=== PATIENT | female | born 1985 | race Caucasian/White ===

== ENCOUNTER 2020-02-24 09:15 | Inpatient (IN) | payer MEDICAID ==
[2020-02-24] MEDS ORDERED: LIDOCAINE (2%) 20 MG/1 ML VIAL 20 ML MDV INFILTRATI SCH (09:30)
--- NOTE | 2020-02-24 09:55 | History and Physical Report ---
History of Present Illness Date of examination: 02/24/20 Chief complaint: abd pain "I just don't feel right" History of present illness: presents to L&D with c/o abd pain & vomiting. u/s confirms no cardiac activity, cephalic presentation Pt reports hx x1, no complication, healthy 9 y/o no high risk factors during care with JOSE D Franco, appointment scheduled today. Pt denies medical complications or hx surgery She denies ETOH/Drugs/ Smoking, no medications today Past History Past Medical History: no pertinent history Past Surgical History: no surgical history Social history: no significant social history, - Obstetrical History Expected Date of Delivery: 03/30/20 Actual Gestation: 35 Week(s) 0 Day(s) : 2 Para: 1 Hx # Term Pregnancies: 1 Number of Pregnancies: 0 Spontaneous Abortions: 0 Induced : 0 Number of Living Children: 1 Medications and Allergies Allergies Allergy/AdvReac Type Severity Reaction Status Date / Time No Known Allergies Allergy Verified 02/24/20 09:24 Active Meds: Active Medications Ephedrine Sulfate (Ephedrine Sulfate) 10 mg IV Q2M PRN PRN Reason: Hypotension Fentanyl (Sublimaze) 100 mcg IV Q2H PRN PRN Reason: Pain,Severe (7-10) LABOR PAIN Lactated Ringer's (Lactated Ringers) 1,000 mls @ 125 mls/hr IV DIRECT ASCENCION Lidocaine (Xylocaine 2%) 20 ml INFILTRATI ONCE ASCENCION Stop: 02/25/20 09:29 Mineral Oil (Mineral Oil) 30 ml PO QHS PRN PRN Reason: Constipation Ondansetron HCl (Zofran) 4 mg IV Q8H PRN PRN Reason: Nausea And Vomiting Terbutaline Sulfate (Brethine) 0.25 mg SUB-Q ONCE PRN PRN Reason: Hyperstimulation/Hypertonicity Review of Systems All systems: negative - Vital Signs Vital signs: Vital Signs Pulse Pulse Ox 71 100 02/24/20 09:19 02/24/20 09:19 Temp Pulse Resp BP Pulse Ox 98.6 F 76 20 146/86 77 L 02/24/20 09:35 02/24/20 09:35 02/24/20 09:35 02/24/20 09:35 02/24/20 09:35 - Physical Exam Breasts: Positive: normal Cardiovascular: Regular rate Lungs: Positive: Normal air movement Abdomen: Positive: normal appearance, other (very firm, tight) Genitourinary (Female): Positive: normal external genitalia, normal perenium Vulva: both: normal Vagina: Positive: normal moisture Uterus: Positive: normal size, normal contour Anus/Rectum: Positive: normal perianal skin Extremities: Positive: normal Deep Tendon Reflex Grade: Normal +2 - Obstetrical Uterine Contraction Monitor Mode: External Cervical Dilatation: 2 Cervical Effacement Percentage: 60 station: -1 Uterine Contraction Pattern: Regular Uterine Tone Measurement Phase: Contraction Uterine Contraction Intensity: Hypertonic Results All other labs normal. Assessment and Plan 34y/o @ 35+0 weeks, presented with demise and suspected placenta abruption. no vaginal bleeding present, no SROM. resting tone moderate with strong ctx intensity. Plan discussed for as long as pt remains stable. Epidural PRN. Dr. Guerrero aware of admission, plan of care made in conjunction with MD. - Patient Problems (1) 35 weeks gestation of Current Visit: Yes Status: Acute (2) demise Current Visit: Yes Status: Acute (3) Elevated blood pressure reading Current Visit: Yes Status: Acute Plan to address problem: b/p elevated upon admission, pt denies hx of elevated b/p - emotional response verses pre-e/GHTN Pre-e labs ordered Will continue to monitor closely
[2020-02-24] MEDS: LACTATED RINGERS 1,000 ML IV SCH ×2 (09:57→11:12)
[2020-02-24] MEDS ORDERED: MINERAL OIL 30 ML ORAL LIQD PO PRN (10:00)
[2020-02-24] MEDS ORDERED: ePHEDrine SULFATE 50 MG/1 ML INJ IV PRN ×2 (10:00→11:45)
[2020-02-24] MEDS ORDERED: TERBUTALINE 1 MG/1 ML INJ SUB-Q PRN (10:00)
[2020-02-24] MEDS ORDERED: fentaNYL 100 MCG/2 ML INJ IV PRN (10:00)
[2020-02-24] MEDS ORDERED: ONDANSETRON 4 MG/2 ML INJ IV PRN ×2 (10:00→16:47)
--- NOTE | 2020-02-24 10:49 | Ultrasound Report ---
ULTRASOUND OBSTETRIC LIMITED INDICATION / CLINICAL INFORMATION: Cannot find heart tones. TECHNIQUE: Transabdominal ultrasound imaging. COMPARISON: None at this facility FINDINGS: HEART RATE (beats per minute): 0 AMNIOTIC FLUID INDEX (cm) = 7.3 PRESENTATION: Cephalic. ADDITIONAL FINDINGS: The placenta is anterior and heterogeneous with no convincing evidence of perfus ion on Doppler interrogation. There is a 7.3 x 4.0 x 3.5 cm heterogeneous area anterior to the placen ta which is of uncertain significance. Considerations would include a venous ramos or possibly a subac martin abruption. IMPRESSION: No heart rate is detected consistent with demise. Signer Name: Zak Butcher Jr, MD Signed: 02/24/2020 10:44 AM Workstation Name: [id number]
[2020-02-24 11:09] LABS: Hematocrit 26.5 % (30.3-42.9); Mean Corpuscular HGB Conc 34 % (30-34); Mean Corpuscular Volume 91 fl (79-97); Platelet Count 166 K/mm3 (140-440); Red Blood Count 2.92 M/mm3 (3.65-5.03); Red Cell Distribution Width 13.5 % (13.2-15.2)
[2020-02-24 11:34] LABS: Alanine Aminotransferase 43 units/L (7-56); Uric Acid 4.3 mg/dL (3.5-7.6)
[2020-02-24] MEDS ORDERED: fentaNYL-BUPIV 2 MCG/ML-0.125% 200 MCG/100 ML BAG EPIDURAL ONE (11:42)
[2020-02-24] MEDS ORDERED: NALOXONE 2 MG/2 ML INJ IV PRN (11:45)
--- NOTE | 2020-02-24 11:47 | Anesthesia Consultation ---
Anesthesia Consult and Med Hx Date of service: 02/24/20 - Airway Anesthetic Teeth Evaluation: Good ROM Head & Neck: Adequate Mental/Hyoid Distance: Adequate Mallampati Class: Class II Intubation Access Assessment: Probably Good - Pulmonary Exam CTA: Yes - Cardiac Exam Cardiac Exam: RRR - Pre-Operative Health Status ASA Pre-Surgery Classification: ASA2 Proposed Anesthetic Plan: Epidural - Pulmonary Hx Asthma: No - Cardiovascular System Hx Hypertension: No - Central Nervous System Hx Seizures: No Hx Psychiatric Problems: No - Endocrine Hx Renal Disease: No Hx Hypothyroidism: No Hx Hyperthyroidism: No - Hematic Hx Anemia: No Hx Sickle Cell Disease: No - Other Systems Hx Alcohol Use: No
--- NOTE | 2020-02-24 11:48 | Progress Note ---
Labor Epidural - Labor Epidural Start Time: 11:30 Stop Time: 11:34 Performed by:: HELEN WAHL Procedure: Patient is requesting epidural for labor pain. H&P, and labs reviewed. Procedure explained, questions answered, consent obtained. Patient in sitting position with blood pressure cuff and pulse ox on and working. Timeout performed immediately before start of procedure. Sterile betadine prep/drape. 3 mL 1% lidocaine skin wheal at L[3]-L[4]. 18-gauge One Diary epidural needle advanced to [id number] with saline at [7] cm. Epidural dexmedetomidine [30] mcg administered. Epidural catheter advanced to [12] cm, negative aspiration for blood and csf, negative test dose 3 ml 1.5% lidocaine with epinephrine. Sterile steri-strips and tegaderm applied, followed by tape reinforcement. Patient tolerated procedure well.
[2020-02-24] MEDS ORDERED: fentaNYL-BUPIV 2 MCG/ML-0.125% 200 MCG/100 ML BAG EPIDURAL SCH (12:00)
[2020-02-24] MEDS ORDERED: MAGNESIUM SULFATE 4 GM/100 ML BAG IV ONE (12:22)
[2020-02-24 12:30] LABS: Hepatitis C Virus Antibody Non-Reactive (NonReactive)
[2020-02-24] MEDS ORDERED: LACTATED RINGERS 1,000 ML IV SCH (12:30)
[2020-02-24 12:49] LABS: Amphetamine Screen,Urine PRESUMPTIVE NEGATIVE; Benzodiazepines Screen,Urine PRESUMPTIVE NEGATIVE; Cannabinoid Screen,Urine PRESUMPTIVE POSITIVE; Cocaine Screen,Urine PRESUMPTIVE NEGATIVE; Methadone Screen,Urine PRESUMPTIVE NEGATIVE; Opiate Screen,Urine PRESUMPTIVE NEGATIVE
[2020-02-24 12:53] LABS: Bilirubin,Urine NEG (Negative); Blood,Urine LG (Negative); Color,Urine Amber (Yellow); Mucus,Urine FEW /HPF; Urobilinogen,Urine < 2.0 mg/dL (<2.0)
[2020-02-24 12:54] LABS: Protein,Urine >500 mg/dL (Negative)
[2020-02-24] MEDS ORDERED: MAGNESIUM SULFATE 40GM/1000ML 40 GM/1,000 ML BAG IV SCH (13:00)
--- NOTE | 2020-02-24 13:47 | Procedure Note ---
OB Delivery Note - Delivery Date of Delivery: 02/24/20 Skin Carver: DOMINIC MOTA (King LEACH) Estimated blood loss: other (400mL) - Vaginal Delivery presentation: vertex Delivery position: OA Intrapartum events: abruption, preeclampsia Delivery induction: none Delivery monitor: none Route of delivery: Delivery placenta: spontaneous Delivery cord: nuchal cord, 3 umbilical vessels Episiotomy: none Delivery laceration: none Anesthesia: epidural Delivery comments: Demised fetus delivered over intact perineum and placed skin to skin with mothe r. Nuchal x1 noted. SO supportive at bedside. Placenta delivered spontaneously in 3 separate pieces- sent to pathology. No lacerations to repair. Fundus firm with scant lochia. Mom LDR stable. All counts correct. Pt to stay in labor and delivery x24hrs for Magnesium Sulfate d/t Pre-eclampsia. - A at 1 minute: 0 at 5 minutes: 0 Infant Gender: Female (4#6oz)
--- NOTE | 2020-02-24 14:58 | Event Note ---
Date: 02/24/20 Patient and s/o asking questions re: home and leaving AMA. Advised patient, based on her labs, she has pre-eclampsia. I advised her on the risks of untreated pre-e including seizure and . Encouraged patient to stay for mag sulfate and monitoring. Patient states she understands and will stay as recommended. Encouraged patient to keep baby at bedside while she is admitted. Arrangement can be made when patient is discharged with home.
[2020-02-24] MEDS ORDERED: ACETAMINOPHEN 325 MG TAB PO PRN (16:47)
[2020-02-24] MEDS ORDERED: LANOLIN/ZINC/DIMETHICONE (LANSINOH) 7 GM TP PRN (16:47)
[2020-02-24] MEDS ORDERED: MAGNESIUM HYDROXIDE (MOM) ORAL LIQD UDC PO PRN (16:47)
[2020-02-24] MEDS ORDERED: diphenhydrAMINE 25 MG CAP PO PRN (16:47)
[2020-02-24] MEDS ORDERED: WITCH HAZEL/ GLYCERIN PAD TP PRN (16:47)
[2020-02-24] MEDS ORDERED: OXYTOCIN DRIP 30 UNITS/500 ML BAG IV SCH (16:47)
[2020-02-24] MEDS ORDERED: IBUPROFEN 600 MG TAB PO SCH (16:47)
[2020-02-24] MEDS ORDERED: BENZOCAINE/MENTHOL 20/0.5% TOP SPRAY 56 GM TP PRN (16:47)
[2020-02-24] MEDS ORDERED: PROMETHAZINE 25 MG TAB PO PRN (16:47)
[2020-02-24 19:14] LABS: Hematocrit 20.1 % (30.3-42.9); Hemoglobin 6.9 gm/dl (10.1-14.3); Mean Corpuscular HGB Conc 34 % (30-34); Mean Corpuscular Volume 90 fl (79-97); Platelet Count 105 K/mm3 (140-440); Red Blood Count 2.23 M/mm3 (3.65-5.03); Red Cell Distribution Width 13.4 % (13.2-15.2)
[2020-02-24] MEDS: DOCUSATE SODIUM 100 MG CAP PO SCH (22:02)
[2020-02-25] MEDS ORDERED: LACTATED RINGERS 1,000 ML IV SCH (02:45)
[2020-02-25 03:16] LABS: Basophils % (Auto) 0.2 % (0.0-1.8); Eosinophils % (Auto) 0.2 % (0.0-4.3); Hemoglobin 6.7 gm/dl (10.1-14.3); Lymphocytes # (Auto) 2.4 K/mm3 (1.2-5.4); Lymphocytes % (Auto) 14.3 % (13.4-35.0); Mean Corpuscular HGB Conc 34 % (30-34); Mean Corpuscular Volume 91 fl (79-97); Monocytes % (Auto) 5.7 % (0.0-7.3); Platelet Count 113 K/mm3 (140-440); Red Blood Count 2.13 M/mm3 (3.65-5.03); Red Cell Distribution Width 13.5 % (13.2-15.2)
[2020-02-25 04:06] LABS: Hematocrit 19.4 % (30.3-42.9)
[2020-02-25] MEDS ORDERED: DIPHtheria,PERTUSSIS(ACELL),TETANUS VACCINE/PF 0.5 ML VIAL IM ONE (06:00)
--- NOTE | 2020-02-25 06:46 | Progress Note ---
Assessment and Plan - Patient Problems (1) demise Onset Date: ~02/24/20 Current Visit: Yes Status: Acute Plan to address problem: Baby remains in open crib @ pt's bedside per her request (2) Elevated blood pressure reading Onset Date: ~02/24/20 Current Visit: No Status: Acute Plan to address problem: Pt sleeping Denies any c/o pain BP 140-115/70-60 afebrile FF below umb lochia small Perineum intact. Pt stable s/p demise PP PreE MGSO4 due to complete @ 1350. P: cont POC Pt desires to go home this afternoon if poss when MGSO4 is complete. Will consult with Dr Schmitt. Subjective - Subjective Date of service: 02/25/20 (pt denies JACKSON, blurred vision, chest pain) Principal diagnosis: Day #1 s/p Demise @ 35w; PreE MGSO4 Patient reports: voiding normally (adequate urine output) Show Low: Objective - Vital Signs Latest vital signs: Vital Signs Temp Pulse Resp BP BP Pulse Ox 02/25/20 05:55 79 115/69 02/25/20 04:55 68 140/75 02/25/20 03:55 73 112/73 02/25/20 02:55 70 120/72 02/25/20 01:55 75 113/60 02/25/20 00:55 76 111/60 02/24/20 23:55 79 142/73 02/24/20 22:55 82 110/55 02/24/20 21:56 84 131/62 02/24/20 20:55 80 126/92 02/24/20 19:55 89 141/76 02/24/20 19:18 79 98 02/24/20 19:13 90 100 02/24/20 19:08 81 97 02/24/20 19:03 83 99 02/24/20 18:58 80 100 02/24/20 18:55 85 141/75 02/24/20 18:52 90 100 02/24/20 18:47 76 99 02/24/20 18:42 93 H 100 02/24/20 18:37 90 100 02/24/20 18:36 91 H 89 02/24/20 18:31 85 99 02/24/20 18:26 84 100 02/24/20 17:56 77 127/76 100 02/24/20 17:51 69 100 02/24/20 17:46 80 100 02/24/20 17:41 77 100 02/24/20 17:36 83 100 02/24/20 17:31 80 100 02/24/20 17:26 86 100 02/24/20 17:21 70 100 02/24/20 17:16 75 100 02/24/20 17:11 54 L 94 02/24/20 15:56 72 139/78 02/24/20 15:43 69 135/74 02/24/20 15:14 69 138/77 02/24/20 14:46 98.2 F 02/24/20 14:29 69 128/74 02/24/20 14:14 73 128/70 02/24/20 13:59 75 124/73 02/24/20 13:44 74 128/62 02/24/20 13:29 68 128/78 02/24/20 13:17 73 100 02/24/20 13:15 73 124/61 80 L 02/24/20 13:12 70 100 02/24/20 13:07 84 100 02/24/20 13:02 88 100 02/24/20 12:57 65 100 02/24/20 12:52 71 100 02/24/20 12:47 78 90 02/24/20 12:44 80 129/59 02/24/20 12:42 81 100 02/24/20 12:41 79 90 02/24/20 12:37 74 100 02/24/20 12:33 62 93 02/24/20 12:32 65 100 02/24/20 12:29 62 138/79 02/24/20 12:27 65 100 02/24/20 12:22 62 100 02/24/20 12:17 63 100 02/24/20 12:14 59 L 146/75 02/24/20 12:12 62 100 02/24/20 12:07 62 100 02/24/20 12:02 62 100 02/24/20 11:57 60 100 02/24/20 11:56 60 130/76 02/24/20 11:53 66 83 L 02/24/20 11:52 63 100 02/24/20 11:51 61 151/78 02/24/20 11:47 64 99 02/24/20 11:46 61 155/77 02/24/20 11:42 61 100 02/24/20 11:40 62 159/78 02/24/20 11:38 63 156/79 02/24/20 11:35 70 100 02/24/20 11:34 67 140/70 02/24/20 11:30 76 99 02/24/20 10:54 18 02/24/20 10:38 75 93 02/24/20 10:36 66 100 02/24/20 10:31 70 100 02/24/20 10:26 67 100 02/24/20 10:24 61 92 02/24/20 10:21 65 100 02/24/20 10:17 66 84 02/24/20 10:16 66 100 02/24/20 10:11 64 99 02/24/20 09:35 98.6 F 76 20 146/86 77 L 02/24/20 09:31 71 93 02/24/20 09:27 59 L 78 L 02/24/20 09:26 79 146/86 02/24/20 09:24 74 100 02/24/20 09:19 71 100 Intake and Output 02/24/20 02/24/20 02/25/20 14:59 22:59 06:59 Intake Total 360.417 480 Output Total 300 350 800 Balance 60.417 -350 -320 Intake: IV 360.417 Lactated Ringers 1,000 ml 360.417 @ 125 mls/hr IV DIRECT ASCENCION Rx#:[id number] Oral 480 Output: Urine 300 350 800 Indwelling Catheter 300 350 800 Other: Total, Intake Amount 480 Total, Output Amount 300 350 800 Weight 150 lb Estimated Blood Loss 400 Patient Weight 02/25/20 06:59 Weight 150 lb - Exam Breasts: Present: normal Cardiovascular: Present: Regular rate Lungs: Present: Clear to auscultation Abdomen: Present: normal appearance, soft Uterus: Present: fundal height below umbilicus Extremities: Present: normal Deep Tendon Reflex Grade: Normal +2 - Labs Labs: Abnormal lab results 02/24/20 02/24/20 02/24/20 Range/Units 10:45 10:45 12:00 WBC 25.8 H (4.5-11.0) K/mm3 RBC 2.92 L (3.65-5.03) M/mm3 Hgb 9.0 L (10.1-14.3) gm/dl Hct 26.5 L (30.3-42.9) % Plt Count (140-440) K/mm3 Talbot # (Auto) (0.0-0.8) K/mm3 Seg Neutrophils % (40.0-70.0) % Seg Neutrophils # (1.8-7.7) K/mm3 Magnesium (1.7-2.3) mg/dL AST 47 H (5-40) units/L Lactate Dehydrogenase 520 H (91-180) units/L Urine pH 8.0 H (5.0-7.0) 02/24/20 02/24/20 02/25/20 Range/Units 18:45 18:45 02:26 WBC 22.7 H (4.5-11.0) K/mm3 RBC 2.23 L (3.65-5.03) M/mm3 Hgb 6.9 L (10.1-14.3) gm/dl Hct 20.1 L D (30.3-42.9) % Plt Count 105 L (140-440) K/mm3 Talbot # (Auto) (0.0-0.8) K/mm3 Seg Neutrophils % (40.0-70.0) % Seg Neutrophils # (1.8-7.7) K/mm3 Magnesium 4.30 H 4.70 H (1.7-2.3) mg/dL AST (5-40) units/L Lactate Dehydrogenase (91-180) units/L Urine pH (5.0-7.0) 02/25/20 Range/Units 02:26 WBC 17.0 H (4.5-11.0) K/mm3 RBC 2.13 L (3.65-5.03) M/mm3 Hgb 6.7 L (10.1-14.3) gm/dl Hct 19.4 L* (30.3-42.9) % Plt Count 113 L (140-440) K/mm3 Talbot # (Auto) 1.0 H (0.0-0.8) K/mm3 Seg Neutrophils % 79.6 H (40.0-70.0) % Seg Neutrophils # 13.5 H (1.8-7.7) K/mm3 Magnesium (1.7-2.3) mg/dL AST (5-40) units/L Lactate Dehydrogenase (91-180) units/L Urine pH (5.0-7.0)
--- NOTE | 2020-02-25 06:52 | Post Anesthesia Evaluation ---
- Post Anesthesia Evaluation Patient Participated: Yes Airway Patent: Yes Stable Respiratory Function: Yes Nausea/Vomiting: No Temp > 96.8F: Yes Pain Manageable: Yes Adequeate Hydration: Yes Anesthesia Complications: No Block Receding Appropriately: Yes
[2020-02-25] MEDS ORDERED: IBUPROFEN 800 MG TAB PO SCH (08:00)
[2020-02-25] MEDS ORDERED: FERROUS SULFATE 325 MG TAB PO SCH (08:00)
[2020-02-25] MEDS ORDERED: PRENATAL VIT27-FE FUMARATE-FOLIC ACID VIT TAB PO SCH (10:00)
[2020-02-25] MEDS: DOCUSATE SODIUM 100 MG CAP PO SCH (10:31)
[2020-02-25 11:57] VITALS: BP 130/77
--- NOTE | 2020-02-25 13:19 | Discharge Summary ---
Providers - Providers Date of Admission: 02/24/20 14:57 Date of discharge: 02/25/20 (pt desires d/c) Attending physician: IVAN BASILIO Primary care physician: FLUME MAKER Hospitalization Reason for admission: active labor, IUP - , IUFD Delivery: Episiotomy: none Laceration: none Incision: normal Other procedures: none complications: none Discharge diagnosis: intrapartum demise, delivery Hospital course: Baby has been picked by Home Pt showering Desires d/c PHILIP. OOB w/o any problems. BP 130/70 Bleeding minimal Perineum intact. P: D/c today Pt is to call her provider and f/u in one week Condition at discharge: Good Disposition: DC-01 TO HOME OR SELFCARE - Discharge Diagnoses (1) Elevated blood pressure reading Status: Acute Comment: Pt instructed to call her OB provider in [place] for an appt in one week Plan - Provider Discharge Summary Activity: routine, no sex for 6 weeks, no heavy lifting 4 weeks, no strenuous exercise Diet: routine Instructions: routine Additional instructions: [] Smoking cessation referral if applicable(refer to patient education folder for contact #) [] Refer to [facility] Booklet Call your doctor immediately for: * Fever > 100.5 * Heavy vaginal bleeding ( >1 pad per hour) * Severe persistent headache * Shortness of breath * Reddened, hot, painful area to leg or breast * Drainage or odor from incision. * Keep incision clean and dry at all times and follow doctor's instructions regarding bathing/showering - Follow up plan Follow up: PRIMARY CARE, [Primary Care Provider] - 7 Days JULIANN MILLER CNM [Advanced Practice Nurse] - 7 Days (Please follow up with your provider in one week)
== END 2020-02-25 13:40 | disposition home or self-care (01) | DRG 774 ==
LOC: TRG 09:15 → APU 09:16 → LD 10:27 → TRG 14:54 → LD 14:57
PROVIDERS: ADMIT Obstetrics & Gynecology; ATTEND Obstetrics & Gynecology
PROC: 10E0XZZ Delivery of Products of Conception, External Approach (ICD-10-PCS; principal; 2020-02-24)
PROC: 3E0R3BZ Introduction of Anesthetic Agent into Spinal Canal, Percutaneous Approach (ICD-10-PCS; 2020-02-24)
PROC: 00HU33Z Insertion of Infusion Device into Spinal Canal, Percutaneous Approach (ICD-10-PCS; 2020-02-24)
PROC: 3E0234Z Introduction of Serum, Toxoid and Vaccine into Muscle, Percutaneous Approach (ICD-10-PCS; 2020-02-25)
DX: O36.4XX0 Maternal care for intrauterine death, not applicable or unspecified (principal); O45.93 Premature separation of placenta, unspecified, third trimester; O75.89 Other specified complications of labor and delivery; O14.94 Unspecified pre-eclampsia, complicating childbirth; R03.0 Elevated blood-pressure reading, without diagnosis of hypertension; O69.1XX0 Labor and delivery complicated by cord around neck, with compression, not applicable or unspecified; Z20.828 Contact with and (suspected) exposure to other viral communicable diseases; Z37.1 Single stillbirth; Z3A.35 35 weeks gestation of pregnancy
CPT/HCPCS: 36415; 76815; 80307; 81001; 82565; 83615; 83735; 84450; 84460; 84550; 85025; 85027; 86592; 86706; 86762; 86803; 86850; 86900; 86901; 87806; 88307; G0378; J2405; J3010; J3475; J7120; U0003

== ENCOUNTER 2020-09-28 12:01 | Emergency (ER) | payer MEDICAID ==
[2020-09-28 12:34] VITALS: BP 110/69
--- NOTE | 2020-09-28 13:42 | XRay Report ---
Left hand radiograph, 3 views HISTORY: Laceration to left hand. COMPARISON: None FINDINGS: No acute fracture or malalignment. No focal soft tissue abnormality is identified. No soft tissue gas or radiopaque foreign body. IMPRESSION: No acute process. Signer Name: Jesse Pruitt MD Signed: 09/28/2020 1:38 PM Workstation Name: [id number]
--- NOTE | 2020-09-28 14:05 | Emergency Department Report ---
ED Laceration HPI - HPI Chief Complaint: Laceration/Recheck/Suture Stated Complaint: CUT PALM OF HAND Time Seen by Provider: 09/28/20 12:50 Occurred When: Today Location: Upper Extremity Tetanus Status: Up to Date (2019) Laceration Symptoms: Yes Pain, No Foreign Body Sensation, No Numbness, No Weakness Other History: This is a 34-year-old female nontoxic, well nourished in appearance, no acute signs of distress presents to the ED with c/o of right palm and laceration that occurred prior to arrival today. Patient stated she was cutting with a knife and excellently cut her hand. Patient denies decreased sensation or range of motion. Patient stated bleeding is under control. Denies any numbness, tingling, fever, chills, nausea, vomiting, chest pain, shortness of breath, headache or stiff neck. Patient denies any allergies to significant past medical history. Patient is that she is up-to-date with tetanus as of last year. ED Review of Systems ROS: Stated complaint: CUT PALM OF HAND Other details as noted in HPI Comment: All other systems reviewed and negative Constitutional: denies: chills, fever Eyes: denies: eye pain, eye discharge, vision change ENT: denies: ear pain, throat pain Respiratory: denies: cough, shortness of breath, wheezing Cardiovascular: denies: chest pain, palpitations Endocrine: no symptoms reported Gastrointestinal: denies: abdominal pain, nausea, diarrhea Genitourinary: denies: urgency, dysuria, discharge Musculoskeletal: denies: back pain, joint swelling, arthralgia Skin: denies: rash, lesions Neurological: denies: headache, weakness, paresthesias Psychiatric: denies: anxiety, depression Hematological/Lymphatic: denies: easy bleeding, easy bruising ED Past Medical Hx - Past Medical History Previous Medical History?: No Hx Hypertension: No Hx Diabetes: No Hx Deep Vein Thrombosis: No Hx Renal Disease: No Hx Sickle Cell Disease: No Hx Seizures: No Hx Asthma: No Hx HIV: No - Surgical History Past Surgical History?: No - Social History Smoking Status: Never Smoker - Medications Home Medications: Home Medications Medication Instructions Recorded Confirmed Last Taken Type Ibuprofen [Motrin 800 MG tab] 800 mg PO TID PRN #30 tablet 02/25/20 Unknown Rx Laceration Physical Exam - Exam General: Vital signs noted. No distress. Alert and acting appropriately. Wound Length (cm): 1 (Palm of right hand and superficial) Laceration Location: Upper Extremity Laceration Exam: Yes Normal Distal CMS, No Foreign Body, No Exposed Tendon, Vessel, or Nerve, No Tendon Injury ED Course Vital Signs 09/28/20 12:32 Temperature 98.1 F Pulse Rate 90 Respiratory 20 Rate Blood Pressure 110/69 O2 Sat by Pulse 100 Oximetry - Reevaluation(s) Reevaluation #1: 09/28/20 14:02 Patient is speaking in full sentences with no signs of distress noted. - Laceration /Wound Repair Right Hand Wound Location: upper extremity (Right hand) Wound Length (cm): 1 Wound's Depth, Shape: superficial Wound Explored: clean Betadine Prep?: Yes Wound Repaired With: Dermabond Layer Closure?: No Sterile Dressing Applied?: Yes Progress: Under sterile field, I used Betadine to clean the area. I then used 40 mL of normal saline to flush the area. I then used Dermabond to approximate the laceration. I then applied a sterile 4 x 4 with tape. Minimal bleeding noted but is under control. Patient tolerated procedure well with no signs of distress. ED Medical Decision Making - Radiology Data [facility] [address] [place] [address] XRay Report Signed Patient: CHAZ CARRILLO MR#: [id number] : 1985 Acct:[id number] Age/Sex: 34 / F ADM Date: 09/28/20 Loc: ED Attending Dr: Ordering Physician: ANTONIO CRUMP NP Date of Service: 09/28/20 Procedure(s): XR hand 3+V LT Accession Number(s): [id number] cc: ANTONIO CRUMP NP Fluoro Time In Minutes: Left hand radiograph, 3 views HISTORY: Laceration to left hand. COMPARISON: None FINDINGS: No acute fracture or malalignment. No focal soft tissue abnormality is identified. No soft tissue gas or radiopaque foreign body. IMPRESSION: No acute process. Signer Name: Moncho Pruitt MD Signed: 09/28/2020 1:38 PM Workstation Name: [id number] Transcribed By: JS Dictated By: MONCHO PRUITT MD Electronically Authenticated By: MONCHO PRUITT MD Signed Date/Time: 09/28/201337 DD/ 35 TD/TT: - Medical Decision Making This is a 34-year-old female that presents with laceration. Patient is stable and was examined by me. The laceration dermbond has been performed and has been performed and patient tolerated well. A sterile dressing has been applied. Patient was educated on proper wound care. Patient is notified of the x-ray results with no questions noted by the patient. Patient was instructed to refer to Follow-up with a primary care doctor in 3-5 days or if symptoms worsen and continue return to emergency room as soon as possible. At time of discharge, the patient does not seem toxic or ill in appearance. No acute signs of distres s noted. Patient agrees to discharge treatment plan of care. No further questions noted by the patient. Critical care attestation.: If time is entered above; I have spent that time in minutes in the direct care of this critically ill patient, excluding procedure time. ED Disposition Clinical Impression: Laceration of hand Qualifiers: Encounter type: initial encounter Foreign body presence: without foreign body Laterality: right Qualified Code(s): S61.411A - Laceration without foreign body of right hand, initial encounter Disposition: - TO HOME OR SELFCARE Is pt being admited?: No Does the pt Need Aspirin: No Condition: Stable Instructions: Laceration Care, Adult, [id number], Sutures, Briseida, or Adhesive Wound Closure Additional Instructions: Follow-up with a primary care doctor in 3-5 days or if symptoms worsen and continue return to emergency room as soon as possible. No heavy lifting or excessive activity to left hand until completely healed. Referrals: PRIMARY MD STEFANY [Referring] - 3-5 Days ADALI AMIN MD [Staff Physician] - 3-5 Days Forms: Work/School Release Form(ED) Time of Disposition: 14:05
== END 2020-09-28 14:16 | disposition home or self-care (01) ==
LOC: ED 12:01
DX: S61.411A Laceration without foreign body of right hand, initial encounter (principal); Z79.1 Long term (current) use of non-steroidal anti-inflammatories (NSAID); W26.0XXA Contact with knife, initial encounter; Y93.89 Activity, other specified; Y92.89 Other specified places as the place of occurrence of the external cause; Y99.8 Other external cause status